=== PATIENT | female | born 2000 | race African-American/Black ===

== ENCOUNTER 2024-11-26 20:02 | Emergency (ER) | payer BC, SELFPAY ==
[2024-11-26 20:11] VITALS: BP 130/75
--- NOTE | 2024-11-26 22:21 | ED.MUSCINJ ---
HPI-Injury
General
Chief Complaint: Musculo-Skeletal Complaint
Source: patient
Exam Limitations: none
Time Seen by Provider: 11/26/24 20:30
Nursing documentation reviewed up to this point in time: agreed with
History of Present Illness-Injury
Is this injury a work related problem?: No
Is pt an associate of [facility],[place]?: No
Initial Injury comments:
Patient states she fell while running yesterday. States she was able to get self up and walk. Immediately noted pain to left knee. Today she reports pain to left hip, knee, ankle. Having difficulty bearing weight. Brought self to ED for eval.
Past History
Past History
ED Past Medical History: None
Review of Systems
Review of Systems
Allergies reviewed?: Yes
All Other Systems: ROS reviewed and negative except as documented in HPI and ROS
Constitutional: Reports no symptoms
Musculoskeletal: Reports joint pain (Pain to left hip, left ankle, left knee)
Skin: Reports no symptoms
Neurological: Reports no symptoms
Psychiatric: Reports no symptoms
Musculoskeletal Injury Exam
Musculoskeletal Injury Exam
Left Hip:
Pain with Movement?: Moderate
Tender to palpation?: Moderate
Soft tissue swelling?: None
External deformity and angulation?: None
Joint effusion?: None
Contusion?: Moderate
Hematoma-local bleeding into tissue?: None
Strain- Sprain- Tear (Connective tissue injury)?: None
Crepitus with movement?: No
Joint instability?: No
Malalignment/deformity?: No
Range of motion: Full
Distal skin color and temperature: normal-warm & good color
Capillary Refill: normal
Normal distal neurovascular exam?: Yes
Peripheral Pulses: posterior tibial (left): 3+ and dorsalis pedis (left): 3+
Left Knee:
Pain with Movement?: Moderate
Tender to palpation?: Moderate
Soft tissue swelling?: None
External deformity and angulation?: None
Joint effusion?: None
Contusion?: Moderate
Hematoma-local bleeding into tissue?: None
Strain- Sprain- Tear (Connective tissue injury)?: None
Crepitus with movement?: No
Joint instability?: No
Malalignment/deformity?: No
Range of motion: Limited
Distal skin color and temperature: normal-warm & good color
Capillary Refill: normal
Normal distal neurovascular exam?: Yes
Left Ankle:
Pain with Movement?: Moderate
Tender to palpation?: Moderate
Soft tissue swelling?: None
External deformity and angulation?: None
Joint effusion?: None
Contusion?: None
Hematoma-local bleeding into tissue?: None
Strain- Sprain- Tear (Connective tissue injury)?: Moderate
Crepitus with movement?: No
Joint instability?: No
Malalignment/deformity?: No
Range of motion: Full
Distal skin color and temperature: normal-warm & good color
Capillary Refill: normal
Normal distal neurovascular exam?: Yes
Phy Exam
General Physical Exam
General Presentation: well appearing and no apparent distress
General age: appears stated age
General Skin: warm and dry
General Habitus: normal
General Mental: alert
General Hydration: appears well hydrated
Musculoskeletal Exam
Musculoskeletal Exam: full ROM and neuro vasc intact
Skin Exam
Skin Exam: normal color, warm/dry and no rash
Psychiatric Exam
Psychiatric Exam: normal mood/affect
Injury Course
Orders/Labs/Results
Orders:
Orders
11/26/24 20:52
Ankle, left 3 view CR [CR Ankle - Left Min 3 Views ] Urgent
Comment:
Reason For Exam: fall
Hip, Left 2-3 Views [CR Hip - LT w/wo Pel 2-3 Vw*] Urgent
Comment:
Reason For Exam: fall
Include a pelvis x-ray?: Yes
Knee, Left 4 or More Views [CR Knee - Left 4 Or More View*] Urgent
Comment:
Reason For Exam: fall
11/26/24 22:00
Knee Immobilizer Left-Treatmen ONCE
11/26/24 22:02
Crutches-Treatment ONCE
*Radiology
Radiology exam reviewed: radiology read reviewed
*Pulse Oximetry
Patient hypoxic: no
*Critical Care Note
Total Time (30-74mins, 75-104mins- exclusive of procedures): Not Applicable
ED Attending Note
-
Portions of this chart may have been created with voice recognition software.� Occasional wrong word or��sound alike� substitutions may have occurred due to the inherent limitations of voice recognition software.
Discharge Plan
Departure
Patient Disposition: Home (Routine Discharge)
Date of Disposition: 11/26/24
Time of Disposition: 21:59
Patient with high blood pressure during this ER visit?: No
Condition: Good
Covid-19: Not Applicable
Discharge Problem:
Leg pain, Contusion of leg
Instructions: Contusion (DC), Ibuprofen, Using Cold for Pain
Referrals:
Diana Nicole I., DO [Active] - (Follow up if your symptoms do not improve over the next week.)
UNKNOWN - PT DOES,NOT KNOW [Family Provider] -
Stand Alone Forms: Return to Work
Interventions
Interventions:
*General Assessment Last Done: 11/26/24 20:11
*ED COVID-19 Vaccine History Last Done: 11/26/24 21:00
ED-Musculoskeletal Assessment Last Done: 11/26/24 21:00
Discharge Date and Time
Print Language: ANDORRAN
== END 2024-11-26 22:38 | disposition home or self-care (01) ==
LOC: EMR 20:02
PROVIDERS: EMERGENCY PHYSICIAN Student in an Organized Health Care Education/Training Program
DX: S80.12XA Contusion of left lower leg, initial encounter (principal); W19.XXXA Unspecified fall, initial encounter
CPT/HCPCS: 29505; 99283; 73502; 73564; 73610